=== PATIENT | male | born 1975 | race African-American/Black ===

== ENCOUNTER 2020-06-21 06:11 | Outpatient (CLI) | payer OTHER ==
[2020-06-21 18:31] LABS: #Basophils 0.1 10x3/uL (0.0-0.2); #Monocytes 0.9 10x3/uL (0.0-1.1); %Basophils 0.6 % (0.0-2.0); %Eosinophils 0.4 % (0.0-6.0); %Lymphocytes 33.3 % (18.0-47.0); %Monocytes 9.7 % (0.0-10.0); %Neutrophils 55.4 % (40.0-75.0); Hemoglobin 15.1 g/dL (14.0-18.0); Mean Corpuscular HGB CONC 32.5 G/DL (32.0-36.0); Mean Corpuscular Hemoglobin 30.5 PG (27.0-33.0); Mean Corpuscular Volume 93.7 fl (80.0-100.0); Mean Platelet Volume 10.6 fl (7.4-10.4); Platelet Count 292 10x3/uL (130-400); RBC Distribution Width 11.9 % (11.5-14.5); Red Blood Cell (RBC) Count 4.95 10x6/uL (4.40-5.80); White Blood Cell (WBC) Count 8.9 10x3/uL (4.5-11.0)
[2020-06-22 12:07] LABS: SARS-CoV-2 MS2 Positive; SARS-CoV-2 N Gene Negative; SARS-CoV-2 S Gene Negative; SARS-CoV-2 by NAA Not Detected (NotDetected); SARS-CoV-2 orf1ab Negative
== END 2020-06-21 06:12 | disposition home or self-care (01) ==
LOC: LABBT 06:11
PROVIDERS: ATTEND Surgery
DX: Z01.812 Encounter for preprocedural laboratory examination (principal); K43.9 Ventral hernia without obstruction or gangrene; Z20.828 Contact with and (suspected) exposure to other viral communicable diseases
CPT/HCPCS: 85025; 87635; U0003

== ENCOUNTER 2020-06-26 06:24 | Day surgery (SDC) | payer OTHER ==
[2020-06-23 13:19] VITALS: BMI 36.9
[2020-06-26] MEDS ORDERED: SUGAMMADEX SODIUM 200 MG/2 ML VIAL ONE (08:11)
[2020-06-26] MEDS ORDERED: Fentanyl 100 MCG/2 ML VIAL ONE ×2 (08:11→09:50)
[2020-06-26] MEDS ORDERED: Lidocaine 1% w/Epinephrine 1:100K 20 ML VIAL ONE (08:14)
[2020-06-26] MEDS ORDERED: Bupivacaine 0.25% HCL 30 ML VIAL ONE (08:14)
[2020-06-26] MEDS ORDERED: Midazolam HCl 2 mg/2 ml Vial ONE (08:20)
--- NOTE | 2020-06-26 09:44 | OP ---
DATE OF PROCEDURE: 06/26/2020 PREOPERATIVE DIAGNOSIS: Epigastric hernia. PROCEDURE PERFORMED: Epigastric hernia repair with mesh. INDICATIONS: This is a 45-year-old male with a painful bulge in the epigastrium. FINDINGS: About a 6-cm amount of tissue coming through a 2-cm opening, 8 cm mesh was used. DESCRIPTION OF PROCEDURE: After informed consent was obtained, the patient was taken to the operating room and given general endotracheal anesthesia and placed in the supine position. Abdomen was prepped and draped in the usual fashion. Local anesthesia was infiltrated subcutaneously and deep, and an upper midline incision was performed. Subcu divided sharply. The hernia sac was dissected out circumferentially down to the fascia and the hernia sac was removed. The contents were omentum. This was reduced. The defect was 2 cm. An 8-cm circular Proceed mesh was inserted intra-abdominally, pulled up, sutured to the abdominal wall with interrupted 0 Ethibond. Hemostasis was assured. The subcu reapproximated with interrupted 3-0 Vicryl and the skin closed with a running subcuticular 4-0 Rapide. Steri-Strips applied. Sterile bandage applied. The patient tolerated the procedure well, transferred to Recovery in good condition. Sponge and needle count verified correct x2. Job ID: [id number]
[2020-06-26] MEDS ORDERED: HYDROcodone/Acetaminophen 5/325 mg Tablet ONE (10:43)
[2020-06-26] MEDS ORDERED: Rocuronium Bromide 10 MG/ML (10ML VIAL) ONE (14:27)
[2020-06-26] MEDS ORDERED: Dexamethasone 20 MG/5 ML VIAL ONE (14:27)
[2020-06-26] MEDS ORDERED: Succinylcholine 200 MG/10 ml SYRINGE FS ONE (14:27)
[2020-06-26] MEDS ORDERED: Esmolol 100 MG/10 ML VIAL ONE (14:27)
[2020-06-26] MEDS ORDERED: Lidocaine 1% PF 5 ML VIAL ONE (14:27)
[2020-06-26] MEDS ORDERED: Ondansetron PF 4 MG/2 ML Vial ONE (14:27)
[2020-06-26] MEDS ORDERED: PROPOFOL 200 MG/20 ML VIAL ONE (14:27)
== END 2020-06-26 11:48 | disposition home or self-care (01) ==
LOC: SDC 06:24
PROVIDERS: ATTEND Surgery
PROC: 0WUF0JZ Supplement Abdominal Wall with Synthetic Substitute, Open Approach (ICD-10-PCS; principal; 2020-06-26)
DX: K43.9 Ventral hernia without obstruction or gangrene (principal); E78.5 Hyperlipidemia, unspecified; G40.909 Epilepsy, unspecified, not intractable, without status epilepticus; E66.9 Obesity, unspecified; F17.200 Nicotine dependence, unspecified, uncomplicated; F41.9 Anxiety disorder, unspecified; Z79.899 Other long term (current) drug therapy
CPT/HCPCS: C1781; J0690; J1100; J2250; J2405; J2704; J3010; S0020